=== PATIENT | female | born 1955 | race Caucasian/White ===

== ENCOUNTER 2017-09-17 08:58 | Day surgery (SDC) | payer BC ==
[2017-09-16 12:41] VITALS: BMI 28.3
[~2017-09-17 08:58] MED LIST: LACTATED RINGERS 1,000 ML IV SCH
[2017-09-17 09:50] VITALS: TEMP 98.4
[2017-09-17] MEDS ORDERED: LIDOCAINE 1% 20 ML VIAL (10MG/ML) FOR IV START INTRADERMA ONE (10:00)
[2017-09-17] MEDS ORDERED: LIDOCAINE 1% INJ 10MG/ML (20 ML MDV) ONE (10:38)
[2017-09-17] MEDS ORDERED: PROPOFOL 10 MG/ML 20 ML VIAL IV ONE (10:38)
--- NOTE | 2017-09-17 10:46 | P.GSHP ---
History of Present Illness H&P Date: 09/17/17 Chief Complaint: Screening colonoscopy This a 62-year-old female for flexure Olco. Patient presents today for screening colonoscopy. She denies a significant GI complaints. Past Medical History Past Medical History: Thyroid Disorder History of Any Multi-Drug Resistant Organisms: None Reported Past Surgical History: Tonsillectomy Additional Past Surgical History / Comment(s): Colonoscopy; Hemorroidectomy Past Anesthesia/Blood Transfusion Reactions: No Reported Reaction Smoking Status: Current some day smoker - Past Family History Mother Family Medical History: Cancer Additional Family Medical History / Comment(s): Breast CA Medications and Allergies Home Medications Medication Instructions Recorded Confirmed Type Aspirin [Adult Low Dose Aspirin EC] 81 mg PO DAILY 09/16/17 09/17/17 History Fish Oil/Dha/Epa [Fish Oil 1,200 1 each PO DAILY 09/16/17 09/17/17 History mg Fish Oil] Multivitamins, Thera [Multivitamin 1 tab PO DAILY 09/16/17 09/17/17 History (formulary)] Thyroid,Pork [Nature-Throid] 65 mg PO HS 09/16/17 09/17/17 History Allergies Allergy/AdvReac Type Severity Reaction Status Date / Time No Known Allergies Allergy Verified 09/17/17 09:50 Surgical - Exam Vital Signs Temp Pulse Resp BP Pulse Ox 98.4 F 73 16 150/79 98 09/17/17 09:44 09/17/17 09:44 09/17/17 09:44 09/17/17 09:44 09/17/17 09:44 - General well developed, no distress - Eyes PERRL - ENT normal pinna - Neck no masses - Respiratory normal expansion - Cardiovascular Rhythm: regular - Abdomen Abdomen: soft, non tender Assessment and Plan Assessment: We'll perform screening colonoscopy.
--- NOTE | 2017-09-17 11:10 | P.OP ---
Date of Procedure: 09/17/17 Preoperative Diagnosis: Screening colonoscopy Postoperative Diagnosis: Normal colonoscopy Procedure(s) Performed: Colonoscopy Anesthesia: MAC Surgeon: Gonzalez Holliday Pathology: none sent Condition: stable Disposition: PACU Description of Procedure: PROCEDURE: The patient was placed on the endoscopy table in the lateral position. Digital rectal examination was performed which revealed no abnormalities. Flexible colonoscope was then placed in the patient's anus and passed throughout the entire colon. The ileocecal valve was visualized. The cecum, ascending, transverse, descending and sigmoid colon were normal. The rectum was normal as well. There were no masses, polyps or diverticula noted in the entire colon. SUMMARY OF FINDINGS: Normal colonoscopy.
[2017-09-17 11:47] VITALS: BP 128/82; PULSE 62; RESP 16
== END 2017-09-17 11:55 | disposition home or self-care (01) ==
LOC: ORWHC2ENDO 08:58
PROVIDERS: ATTEND Surgery
DX: Z12.11 Encounter for screening for malignant neoplasm of colon (principal); E07.9 Disorder of thyroid, unspecified; F17.200 Nicotine dependence, unspecified, uncomplicated; Z79.82 Long term (current) use of aspirin; Z79.899 Other long term (current) drug therapy; Z80.3 Family history of malignant neoplasm of breast
CPT/HCPCS: 45378; J2001; J2704

== ENCOUNTER → 2017-10-06 | Outpatient (CLI) | payer BC ==
--- NOTE | 2017-10-07 08:34 | MM ---
Reason for exam: screening (asymptomatic). Last mammogram was performed 1 year and 2 months ago. History: Patient is postmenopausal. Family history of breast cancer in mother at age 55. Benign excisional biopsy of the left breast, 2014. Physical Findings: A clinical breast exam by your physician is recommended on an annual basis and results should be correlated with mammographic findings. MG Screening Mammo w CAD Bilateral CC and MLO view(s) were taken. Prior study comparison: July 31, 2016, mammogram, performed at [facility]. The breast tissue is heterogeneously dense. This may lower the sensitivity of mammography. Finding: There are typically benign dystrophic, round calcifications in both breasts. Previous mammotome biopsy in the left breast. There is a chronic nodularity bilaterally at axilla. There is no discrete abnormality. ASSESSMENT: Benign, BI-RAD 2 RECOMMENDATION: Routine screening mammogram of both breasts in 1 year.
== END | disposition home or self-care (01) ==
LOC: RADMAMWWP 08:02
PROVIDERS: ATTEND Family Medicine
DX: Z12.31 Encounter for screening mammogram for malignant neoplasm of breast (principal)
CPT/HCPCS: 77067

== ENCOUNTER → 2017-11-28 | Outpatient (CLI) | payer BC ==
--- NOTE | 2017-11-28 10:05 | MR ---
EXAMINATION TYPE: MR knee RT wo con DATE OF EXAM: 11/28/2017 COMPARISON: Outside x-ray dated 11/05/2017 HISTORY: Pain in right knee TECHNIQUE: Multiplanar, multisequence imaging of the right knee is performed without IV contrast. FINDINGS: MEDIAL MENISCUS: There is abnormal signal involving the posterior horn the medial meniscus suggestive of a linear tear. There is increased signal along the femoral articular cartilage of the medial comp artment compatible with grade 3 to localized chondromalacia. LATERAL MENISCUS: Anterior and posterior horns are intact without tear. CRUCIATE LIGAMENTS: The anterior and posterior cruciate ligaments are intact and unremarkable. COLLATERAL LIGAMENTS: The medial collateral ligament and lateral collateral ligament complex are inta ct and unremarkable. EXTENSOR MECHANISM: Visualized quadriceps and patellar tendons are intact. EFFUSION: No significant suprapatellar joint effusion. POPLITEAL CYST: No popliteal/walls cyst. TRICOMPARTMENT SPACES: There is marked marrow edema involving the patella. Correlate for bone contusi on. Thinning of the medial and lateral patellar retinaculum cartilage noted. Less than 1 cm fluid sig nal in the popliteal fossa may be related to a tiny popliteal fossa cyst. IMPRESSION: 1. 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 2. Diffuse abnormal signal involving the upper pole the patella suggestive of bone contusion or edema .
== END | disposition home or self-care (01) ==
LOC: RADMRIMAIN 09:12
PROVIDERS: ATTEND Orthopaedic Surgery
DX: R93.6 Abnormal findings on diagnostic imaging of limbs (principal); M25.561 Pain in right knee

== ENCOUNTER → 2018-02-16 | Outpatient (CLI) | payer BC ==
--- NOTE | 2018-02-16 17:47 | CT ---
EXAMINATION TYPE: CT chest w con DATE OF EXAM: 02/16/2018 COMPARISON: None HISTORY: 62-year-old female hemoptysis, Cold symptoms 4-5 days, coughed up blood once TECHNIQUE: Contiguous axial scanning of the chest after the administration of 100 mL of Isovue 300. Coronal/sagittal reconstructions performed. CT DLP: 227.6mGycm. Automatic exposure control utilized for a dose reduction. FINDINGS: Heart normal size without pericardial effusion. Aorta normal caliber with bovine configuration to the aortic arch. No thoracic lymphadenopathy by CT size criteria. Evaluation of the lungs shows minimal pleural-parenchymal scarring at the apices and some focal bronc hial wall thickening involving lateral segmental basilar right lower lobe bronchus on axial image 42. No consolidation or pleural effusion. Visualized upper abdomen shows incidental retroaortic left renal vein. Bones: Mild endplate spondylosis lower thoracic spine. IMPRESSION: 1. Some focal mural-based bronchial thickening involving a segmental basilar right lower lobe branch. Some focal inflammation/bronchitis is possible. Recommend 3-6 month follow-up to exclude an early en dobronchial lesion. 2. Otherwise, no acute pulmonary process.
== END | disposition home or self-care (01) ==
LOC: RADCTMAIN 15:32
PROVIDERS: ATTEND Family Medicine
DX: R91.8 Other nonspecific abnormal finding of lung field (principal)
CPT/HCPCS: 71260; Q9967

== ENCOUNTER → 2018-04-13 | Outpatient (CLI) | payer BC ==
--- NOTE | 2018-04-13 23:32 | CT ---
EXAMINATION TYPE: CT chest wo con DATE OF EXAM: 04/13/2018 COMPARISON: 02/16/2018 HISTORY: 62-year-old female Hemoptysis. TECHNIQUE: Contiguous axial scanning of the chest without IV contrast. Coronal and sagittal reconstru ctions performed. CT DLP: 248.1 mGycm Automated exposure control for dose reduction was used. FINDINGS: Size without pericardial effusion. Bovine configuration to the aortic arch weight mild ectasia of the mid to lower descending thoracic a abdoulaye at 2.6 cm. Scattered nonenlarged mediastinal lymph nodes. No thoracic lymphadenopathy by CT size criteria. No consolidation or pleural effusion. Strandy atelectasis at the left base. The previous endobronchia l/mural based thickening involving a segmental right lower lobe bronchus has resolved. Prominent ingested debris distending the stomach. Visualized upper abdomen otherwise shows no gross a bnormality. Bones: Mild degenerative disc disease lower thoracic spine. No osseous destructive process. IMPRESSION: STRANDY ATELECTASIS AT THE LEFT BASE. NO ACUTE PULMONARY PROCESS. THE PREVIOUS ENDOBRONCHIAL OPACITY INVOLVING A SEGMENTAL RIGHT LOWER LOBE BRONCHUS HAS RESOLVED SUGGE STING RETAINED MUCOID DEBRIS OR SECRETIONS.
== END | disposition home or self-care (01) ==
LOC: RADCTMAIN 17:43
PROVIDERS: ATTEND Internal Medicine Pulmonary Disease
DX: J98.11 Atelectasis (principal)
CPT/HCPCS: 71250

== ENCOUNTER → 2018-10-21 | Outpatient (CLI) | payer BC ==
[2018-10-21 14:47] LABS: Basophils # (A) 0.1 k/uL (0-0.2); Basophils % (A) 1 %; Eosinophils # (A) 0.4 k/uL (0-0.7); Eosinophils % (A) 4 %; HCT 44.8 % (34.0-46.0); HGB 14.9 gm/dL (11.4-16.0); Lymphocytes # (A) 2.8 k/uL (1.0-4.8); Lymphocytes % (A) 28 %; MCH 32.3 pg (25.0-35.0); MCHC 33.3 g/dL (31.0-37.0); Monocytes # (A) 0.6 k/uL (0-1.0); Monocytes % (A) 6 %; Neutrophils # (A) 6.1 k/uL (1.3-7.7); Neutrophils % (A) 60 %; Platelet Count 276 k/uL (150-450); RBC 4.62 m/uL (3.80-5.40); RDW 13.3 % (11.5-15.5); WBC 10.2 k/uL (3.8-10.6)
== END | disposition home or self-care (01) ==
LOC: LABPAT 12:52
PROVIDERS: ATTEND Obstetrics & Gynecology
DX: Z01.812 Encounter for preprocedural laboratory examination (principal)
CPT/HCPCS: 36415; 85025

== ENCOUNTER → 2018-10-26 | Outpatient (CLI) | payer BC | END | disposition home or self-care (01) | LOC: LABWHC1 07:26 | PROVIDERS: ATTEND Obstetrics & Gynecology | DX: Z01.818 Encounter for other preprocedural examination (principal) | CPT/HCPCS: 36415; 93005 ==

== ENCOUNTER 2018-10-27 06:12 | Day surgery (SDC) | payer BC ==
[2018-10-26 10:56] VITALS: BMI 27.4
--- NOTE | 2018-10-26 20:56 | P.HPOB ---
History of Present Illness H&P Date: 10/26/18 Chief Complaint: Thickened endometrium This is a 63-year-old female 2 para 2 who presents for dilation and curettage with hysteroscopy secondary to endometrial thickening. Her urinalysis at her PCPs office showed positive blood and pelvic ultrasound was performed as part of the workup. She denies having any vaginal bleeding. No kidney stone was visualized on ultrasound however her uterus showed an endometrial thickness of 7.4 mm. Uterine size was 9.1 x 4.1 x 5.3 cm. Neither ovary was well visualized. In light of the thickened endometrium, the decision is made to proceed with dilation and curettage with hysteroscopy for sampling of her endometrial lining. She has been using a hormone cream that is a mixture of estriol, estradiol, progesterone, and testosterone. Obstetrical history: . History of 2 vaginal deliveries. Gynecologic history: No history of sexual transmitted diseases. Social history: She is . She is retired. Review of Systems Constitutional: Denies chills, Denies fever Eyes: denies blurred vision, denies pain Ears, nose, mouth and throat: Denies headache, Denies sore throat Cardiovascular: Denies chest pain, Denies shortness of breath Respiratory: Denies cough Gastrointestinal: Denies abdominal pain, Denies diarrhea, Denies nausea, Denies vomiting Genitourinary: Reports hematuria, Denies abnormal vaginal bleeding, Denies dysuria Menstruation: Reports postmenopausal Musculoskeletal: Denies myalgias Integumentary: Denies pruritus, Denies rash Neurological: Denies numbness, Denies weakness Psychiatric: Denies anxiety, Denies depression Past Medical History Past Medical History: Osteoarthritis (OA), Thyroid Disorder History of Any Multi-Drug Resistant Organisms: None Reported Past Surgical History: Tonsillectomy Additional Past Surgical History / Comment(s): Colonoscopy; Hemorroidectomy Past Anesthesia/Blood Transfusion Reactions: No Reported Reaction Smoking Status: Current some day smoker - Past Family History Mother Family Medical History: Cancer Additional Family Medical History / Comment(s): Breast CA Medications and Allergies Home Medications Medication Instructions Recorded Confirmed Type Fish Oil/Dha/Epa [Fish Oil 1,200 1 each PO DAILY 09/16/17 10/26/18 History mg Fish Oil] Multivitamins, Thera [Multivitamin 1 tab PO DAILY 09/16/17 10/26/18 History (formulary)] Atorvastatin [Lipitor] 10 mg PO HS 10/26/18 10/26/18 History Glucosamine/Chondr Varma A Sod [Osteo 1 each PO DAILY 10/26/18 10/26/18 History Bi-Flex Caplet] Montelukast [Singulair] 10 mg PO HS PRN 10/26/18 10/26/18 History Thyroid,Pork [[place] Thyroid] 60 mg PO DAILY 10/26/18 10/26/18 History Timolol 0.5% Ophth Soln [Timoptic 1 drop BOTH EYES BID 10/26/18 10/26/18 History 0.5% Ophth Soln] Vitamin B Complex/Folic Acid 0.4 mg PO DAILY 10/26/18 10/26/18 History [B-Complex Tablet] Allergies Allergy/AdvReac Type Severity Reaction Status Date / Time No Known Allergies Allergy Verified 10/26/18 10:08 Exam Osteopathic Statement: *. No significant issues noted on an osteopathic structural exam other than those noted in the History and Physical/Consult. Intake and Output 10/26/18 10/26/18 10/26/18 06:59 14:59 22:59 Other: Weight 70.307 kg HEENT: Within normal limits Heart: Regular rate and rhythm Lungs: Clear to auscultation bilaterally Abdomen: Soft, nontender Pelvic exam: Uterus is small, nontender, anteverted, with no adnexal masses or tenderness noted. Extremities: Negative Homans Assessment and Plan (1) Thickened endometrium Status: Acute Code(s): R93.89 - ABNORMAL FINDINGS ON DX IMAGING OF OTH BODY STRUCTURES SNOMED Code(s): 630054958 Plan: Proceed with dilation and curettage with hysteroscopy. I have discussed the risks, benefits, and alternative therapies for the above- mentioned procedure and for both sedation/anesthesia as well as necessary blood products administration, if indicated, as they pertain to this patient. The patient has indicated her understanding and acceptance of the risks and procedures discussed.
[~2018-10-27 06:12] MED LIST changes: +DEXAMETHASONE SOD PHOSPHATE 10 MG/ML 1 ML VIAL IV ONE; +HYDROmorphone 0.5 MG/0.5 ML SYRINGE IVP PRN; +MIDAZOLAM (PF) 2 MG/2 ML VIAL IV PRN; +ONDANSETRON 4 MG/2 ML VIAL IVP ONE; +Pre Op ABX Message 1 EACH MISC MISCELLANE ONE; +SCOPOLAMINE 1.5MG/72HR PATCH TRANSDERM ONE
[2018-10-27 06:52] VITALS: RESP 16
[2018-10-27] MEDS ORDERED: LIDOCAINE 1% 20 ML VIAL (10MG/ML) FOR IV START INTRADERMA ONE (07:01)
[2018-10-27] MEDS ORDERED: PROPOFOL 10 MG/ML 20 ML VIAL IV ONE (07:24)
[2018-10-27] MEDS ORDERED: MIDAZOLAM 2 MG/2 ML VIAL ONE (07:24)
[2018-10-27] MEDS ORDERED: fentaNYL (PF) 50 MCG/ML 2 ML AMP ONE (07:24)
[2018-10-27] MEDS ORDERED: LIDOCAINE 1% INJ 10MG/ML (20 ML MDV) ONE (07:24)
[2018-10-27] MEDS ORDERED: KETOROLAC 30 MG/ML 1 ML VIAL ONE (07:24)
--- NOTE | 2018-10-27 07:51 | P.OP ---
Date of Procedure: 10/27/18 Preoperative Diagnosis: Endometrial thickening Postoperative Diagnosis: Endometrial polyp Procedure(s) Performed: Dilation and curettage with hysteroscopy Anesthesia: other (Mask general) Surgeon: Kendra Bullock Estimated Blood Loss (ml): 5 Pathology: other (Endometrial curettings) Condition: stable Disposition: same day Indications for Procedure: This is a 63-year-old female 2 para 2 who presents for dilation and curettage with hysteroscopy secondary to endometrial thickening. Her urinalysis at her PCPs office showed positive blood and pelvic ultrasound was performed as part of the workup. She denies having any vaginal bleeding. No kidney stone was visualized on ultrasound however her uterus showed an endometrial thickness of 7.4 mm. Uterine size was 9.1 x 4.1 x 5.3 cm. Neither ovary was well visualized. In light of the thickened endometrium, the decision is made to proceed with dilation and curettage with hysteroscopy for sampling of her endometrial lining. She has been using a hormone cream that is a mixture of estriol, estradiol, progesterone, and testosterone. Operative Findings: Uterus is mid to retroverted position and sounded to 9 cm. No adnexal masses are palpated. Upon hysteroscopy, a fairly large endometrial polyp is noted attached to the left side of the uterus. Both tubal ostia are visualized. Relatively atrophic endometrial background was noted. Minimal endometrial tissue was obtained. Description of Procedure: The patient is taken to the operating room where she is placed in the dorsal lithotomy position. She is prepped and draped in the normal sterile fashion. Examination is performed under anesthesia. The above noted findings are made. Next a catheter was inserted into the bladder and the bladder is drained. Catheter is removed. A weighted speculum was placed in the patient's vagina and a right angle retractor is used to visualize the cervix. The anterior lip of the cervix is grasped with a single-tooth tenaculum. The cervix is noted to be slightly stenotic and is slightly dilated with Guy dilators. Next the uterus is sounded to 9 cm. Cervix is gently dilated further and until a hysteroscope could be passed. Hysteroscopy is performed using normal saline. The above noted findings are made and pictures are taken. Hysteroscope was withdrawn and the cervix is gently dilated further. Next a polyp forcep was introduced and a large polypoid type tissue was obtained. Next a medium-size sharp curet was introduced and sharp curettage was performed until a gritty texture was noted. Minimal further tissue was noted. Specimen is sent to pathology. Single-tooth tenaculum is removed. No active bleeding is noted. All instruments are removed from the vagina. All sponge counts are correct. The patient is taken to recovery room in stable condition.
[2018-10-27 08:11] VITALS: TEMP 96.9
[2018-10-27 08:55] VITALS: BP 130/87; PULSE 66
== END 2018-10-27 09:20 | disposition home or self-care (01) ==
LOC: OR 06:12
PROVIDERS: ATTEND Obstetrics & Gynecology
DX: N84.0 Polyp of corpus uteri (principal); M19.90 Unspecified osteoarthritis, unspecified site; E07.9 Disorder of thyroid, unspecified; Z80.3 Family history of malignant neoplasm of breast; Z79.890 Hormone replacement therapy; Z79.899 Other long term (current) drug therapy; E78.5 Hyperlipidemia, unspecified; F17.200 Nicotine dependence, unspecified, uncomplicated; H40.9 Unspecified glaucoma
CPT/HCPCS: 88305; 58558; J2250; J1100; J2405; J2001; J3010; J1885; J2704

== ENCOUNTER → 2019-02-11 | Outpatient (CLI) | payer BC ==
--- NOTE | 2019-02-12 09:17 | MM ---
Reason for exam: screening (asymptomatic). Last mammogram was performed 1 year and 4 months ago. History: Patient is postmenopausal. Family history of breast cancer in mother at age 55. Benign excisional biopsy of the left breast, 2014. Physical Findings: A clinical breast exam by your physician is recommended on an annual basis and results should be correlated with mammographic findings. MG Screening Mammo w CAD Bilateral CC and MLO view(s) were taken. Prior study comparison: October 06, 2017, bilateral MG screening mammo w CAD. July 31, 2016, mammogram, performed at [facility]. The breast tissue is heterogeneously dense. This may lower the sensitivity of mammography. Stable benign calcifications. Previous mammotome biopsy in the left breast. There is no discrete abnormality. No significant changes when compared with prior studies. ASSESSMENT: Benign, BI-RAD 2 RECOMMENDATION: Routine screening mammogram of both breasts in 1 year.
== END | disposition home or self-care (01) ==
LOC: RADMAMWWP 09:55
PROVIDERS: ATTEND Family Medicine
DX: Z12.31 Encounter for screening mammogram for malignant neoplasm of breast (principal); Z80.3 Family history of malignant neoplasm of breast
CPT/HCPCS: 77067

== ENCOUNTER → 2019-07-06 | Outpatient (CLI) | payer MEDICARE ==
--- NOTE | 2019-07-06 12:37 | CT ---
EXAMINATION TYPE: CT urogram wo/w con DATE OF EXAM: 07/06/2019 COMPARISON: HISTORY: Microscopic hematuria. No complaints of pain CT DLP: 1310.4 mGycm CONTRAST: Performed and with IV Contrast, patient injected with 100 mL of Isovue 300. CT Urography was performed with unenhanced followed by enhanced images of the kidneys, ureters and ur inary bladder. Delayed images were obtained. 3d reconstruction was perfromed at a separate work sta tion. FINDINGS: KIDNEYS/BLADDER: No hydronephrosis. No nephrolithiasis. No disctinct renal mass. Urinary bladder g rossly unremarkable. LUNG BASES-: No visible nodule. No infiltrate. LIVER/GB: No calcified gallstones. No space occupying hepatic lesion. Biliary tree is of normal ca liber. PANCREAS: No inflammation. No distinct mass. SPLEEN: No splenic enlargement. No lesion seen. ADRENALS: No nodule. No thickening. BOWEL: Normal appendix. Normal bowel caliber. No inflammation. GENITAL ORGANS: Lobulated uterus compatible with leiomyomatous change and some which are calcified. LYMPH NODES: No greater than 1cm abdominal or pelvic lymph nodes are appreciated. AORTA: No significant abnormality. OSSEOUS STRUCTURES: No significant abnormality is seen. OTHER: No significant additional abnormality is seen. IMPRESSION: 1. No significant abnormality to account for the patient's symptoms of hematuria. Correlate clinicall y.
== END | disposition home or self-care (01) ==
LOC: RADCTMAIN 10:17
PROVIDERS: ATTEND Urology
DX: R31.9 Hematuria, unspecified (principal)
CPT/HCPCS: 82565; 84520; 74178; 36415; 74400; Q9967

== ENCOUNTER → 2020-02-14 | Outpatient (CLI) | payer MEDICARE ==
[2020-02-14 08:45] LABS: HCT 43.2 % (34.0-46.0); HGB 14.1 gm/dL (11.4-16.0); MCH 32.2 pg (25.0-35.0); MCHC 32.8 g/dL (31.0-37.0); MCV 98.2 fL (80.0-100.0); Platelet Count 240 k/uL (150-450); RDW 12.4 % (11.5-15.5); WBC 7.9 k/uL (3.8-10.6)
[2020-02-14 15:34] LABS: African American GFR (CKD) 68.5 (60.0-200.0); Albumin 4.1 g/dL (3.80-4.90); Albumin/Globulin Ratio 1.64 (1.60-3.17); Anion Gap 7.4 mmol/L (4.00-12.00); Calcium 9.3 mg/dL (8.7-10.3); Carbon Dioxide 23.6 mmol/L (21.6-31.8); Chol/HDL Ratio 2.5; Globulin 2.5 g/dL (1.6-3.3); LDL Cholesterol,Calculated 62.2 mg/dL (0.0-131.0); Non-African American GFR(CKD) 59.1 (60.0-200.0); Potassium 4.2 mmol/L (3.5-5.5); Total Bilirubin 0.8 mg/dL (0.2-1.2); Total Protein 6.6 g/dL (6.2-8.2); VLDL Calculation 15.8 mg/dL (5.00-40.00)
[2020-02-15 14:22] LABS: Estradiol 32.2 pg/mL
== END | disposition home or self-care (01) ==
LOC: LABWHC1 08:12
PROVIDERS: ATTEND Family Medicine
DX: E03.9 Hypothyroidism, unspecified (principal); E78.5 Hyperlipidemia, unspecified; Z78.0 Asymptomatic menopausal state
CPT/HCPCS: 36415; 80053; 80061; 82670; 84144; 84402; 84439; 84443; 84481; 85027

== ENCOUNTER → 2020-04-25 | Outpatient (CLI) | payer MEDICARE ==
--- NOTE | 2020-04-26 11:16 | MM ---
Reason for exam: screening (asymptomatic). Last mammogram was performed 1 year and 2 months ago. History: Patient is postmenopausal. Family history of breast cancer in mother at age 55. Benign excisional biopsy of the left breast, 2014. Took other hormone for 12 years. Physical Findings: A clinical breast exam by your physician is recommended on an annual basis and results should be correlated with mammographic findings. MG Screening Mammo w CAD Bilateral CC and MLO view(s) were taken. Prior study comparison: February 11, 2019, bilateral MG screening mammo w CAD. October 06, 2017, bilateral MG screening mammo w CAD. The breast tissue is heterogeneously dense. This may lower the sensitivity of mammography. Benign appearing bilateral calcifications. Previous mammotome biopsy in the left breast. ASSESSMENT: Benign, BI-RAD 2 RECOMMENDATION: Routine screening mammogram of both breasts in 1 year.
== END | disposition home or self-care (01) ==
LOC: RADMAMWWP 08:29
PROVIDERS: ATTEND Family Medicine
DX: Z12.31 Encounter for screening mammogram for malignant neoplasm of breast (principal); Z80.3 Family history of malignant neoplasm of breast
CPT/HCPCS: 77067

== ENCOUNTER → 2021-04-26 | Outpatient (CLI) | payer MEDICARE ==
--- NOTE | 2021-04-27 14:54 | MM ---
Reason for exam: screening (asymptomatic). Last mammogram was performed 1 year ago. History: Patient is postmenopausal. Family history of breast cancer in mother at age 55. Benign excisional biopsy of the left breast, 2015. Taking progesterone for 13 years. Took other hormone for 12 years. Physical Findings: A clinical breast exam by your physician is recommended on an annual basis and results should be correlated with mammographic findings. MG 3D Screening Mammo W/Cad Bilateral CC and MLO view(s) were taken. Prior study comparison: April 25, 2020, bilateral MG screening mammo w CAD. February 11, 2019, bilateral MG screening mammo w CAD. The breast tissue is heterogeneously dense. This may lower the sensitivity of mammography. Benign appearing calcifications bilaterally. Previous mammotome biopsy in the left breast. There are grouped calcifications in the left central breast. ASSESSMENT: Incomplete: need additional imaging evaluation, BI-RAD 0 RECOMMENDATION: Special view mammogram of the left breast. [facility] will attempt to contact patient to return for supplemental views.
== END | disposition home or self-care (01) ==
LOC: RADMAMWWP 09:19
PROVIDERS: ATTEND Family Medicine
DX: Z12.31 Encounter for screening mammogram for malignant neoplasm of breast (principal)
CPT/HCPCS: 77063; 77067

== ENCOUNTER → 2021-05-10 | Outpatient (CLI) | payer MEDICARE ==
--- NOTE | 2021-05-10 14:22 | MM ---
Reason for exam: additional evaluation requested from abnormal screening. Last mammogram was performed less than 1 month ago. History: Patient is postmenopausal. Family history of breast cancer in mother at age 53. Benign excisional biopsy of the left breast, 2014. Taking progesterone for 13 years. Took other hormone for 12 years. Physical Findings: Nurse did not find any significant physical abnormalities on exam. MG 3D Work Up W/Cad LT CC with magnification, LM with magnification, and LM view(s) were taken of the left breast. Prior study comparison: April 26, 2021, bilateral MG 3d screening mammo w/cad. April 25, 2020, bilateral MG screening mammo w CAD. Calcifications are likely within the wall of a cyst. 6 month follow up recommended. These results were verbally communicated with the patient and result sheet given to the patient on 05/10/21. ASSESSMENT: Probably benign, BI-RAD 3 RECOMMENDATION: Follow-up diagnostic mammogram of the left breast in 6 months.
== END | disposition home or self-care (01) ==
LOC: RADMAMWWP 10:11
PROVIDERS: ATTEND Family Medicine
DX: R92.8 Other abnormal and inconclusive findings on diagnostic imaging of breast (principal)
CPT/HCPCS: 77065; G0279; 77061

== ENCOUNTER → 2021-08-15 | Outpatient (CLI) | payer MEDICARE ==
--- NOTE | 2021-08-15 12:44 | CONS ---
CONSULTATION DATE OF SERVICE: 08/15/2021 This 66-year-old lady has been evaluated in [facility] for possible obstructive sleep apnea-hypopnea syndrome. HISTORY OF PRESENT ILLNESS/SLEEP-WAKE EVALUATION: Patient's usual sleep schedule is from 11 p.m. to 7 a.m. No problems with falling asleep, although she reads in the bedroom. She sleeps only on the side position; when she is on the back position she feels that her throat is closed and she has some breathing problems at that moment. She wakes up from sleep 3 times with nocturia. No history of hypnagogic hallucinations, sleep paralysis or cataplexy. During the day she usually does not take naps. [place] Sleepiness Scale is 9, which is borderline. She feels sleepy very often while reading or watching TV. PAST MEDICAL HISTORY: Positive for hypertension in the past, hyperlipidemia, allergies, hypothyroidism. PAST SURGICAL HISTORY: Tubal ligation 1981, hemorrhoid surgery 2003. MEDICATIONS: Estradiol, progesterone, atorvastatin 10 mg once a day, [place] Thyroid 90 mcg once a day, Singulair as needed, Zyrtec as needed. FAMILY HISTORY: Positive for heart problems, cancer, acid reflux. REVIEW OF SYSTEMS: Snoring, multiple awakenings from sleep. No headache. No chest pain. No shortness of breath. No fevers. No double vision. No recent chest pain. No abdominal pain. No bleeding episodes. No blood in the urine. No seizure episodes. PHYSICAL EXAMINATION: GENERAL: Pleasant lady without distress. VITAL SIGNS: BP was taken on the right arm several for measurements: 172/117, then 170/120, and then in 20 minutes 157/102. On the left arm in 20 minutes 161/103. RR 16, height 5 feet 3-1/2 inches, weight 161.6, body mass index 28, temperature 97.3, oxygen saturation at room air 97%. HEENT: PERRLA, EOMI, evaluation of oropharynx showed tongue protrudes midline. Extremely low position of soft palate; Mallampati IV. NECK: Supple, no JVD. Thyroid is not palpable. Neck measures 14-1/2 inches in circumference. LUNGS: Clear to percussion and to auscultation. Good air exchange. No wheezing or rhonchi. HEART: S1, S2 regular. No murmurs, gallops, or rubs. ABDOMEN: Soft and nontender. Bowel sounds are present. No organomegaly appreciated. EXTREMITIES: No clubbing or cyanosis. MODERATE NEEDS TEACHER: Awake, alert, and oriented X3. Cranial nerves 2 to 7 intact. There is no fasciculation or atrophy. noted. No focal deficits observed. IMPRESSION: 1. Snoring, multiple awakenings from sleep, extremely low position of soft palate, awakenings from sleep with choking and gasping for air when sleep on the back position; she tries always to sleep on her side. Obstructive sleep apnea-hypopnea syndrome. 2. Hypertension in the office. Patient indicated that she drinks one pot of caffeine in the morning. She also has a history of hypertension. 3. Hyperlipidemia. 4. Allergies. 5. Hypothyroidism. 6. Status post tubal ligation. 7. Status post hemorrhoid surgery in 2003. PLAN: 1. Monitoring blood pressure. 2. Low-sodium diet. 3. Stop caffeine. 4. Follow with primary care physician for monitoring blood pressure. 5. Home sleep apnea test to check patient's respiration during sleep. 6. CPAP/BiPAP titration if sleep study confirms obstructive sleep apnea-hypopnea syndrome. 7. Preferable position during sleep on the side. 8. No driving if patient feels any sleepiness. 9. I will see patient for follow up visit to explain results of testing and following plan. Thank you very much for referring this patient for consultation. Sincerely, Tio Costello MD, PhD, FAASM Diplomat of [place] [employer] Sleep Medicine Board of [place] [employer] [facility] [place] MMODL / IJN: [id number] /
== END | disposition home or self-care (01) ==
LOC: SLEEP 10:51
PROVIDERS: ATTEND Internal Medicine
DX: G47.33 Obstructive sleep apnea (adult) (pediatric) (principal); E78.5 Hyperlipidemia, unspecified; T78.40XA Allergy, unspecified, initial encounter; E03.9 Hypothyroidism, unspecified; Z98.890 Other specified postprocedural states
CPT/HCPCS: 99211

== ENCOUNTER → 2022-05-23 | Outpatient (CLI) | payer MEDICARE ==
--- NOTE | 2022-05-24 03:53 | EEG ---
ELECTROENCEPHALOGRAM REPORT PREAMBLE: This is a 67-year-old female who had a syncopal spell. CURRENT MEDICATIONS: 1. Hydrochlorothiazide. 2. Atorvastatin. 3. Bupropion. 4. Vitamin D. 5. Turmeric. 6. Cetirizine. 7. Montelukast. EEG FINDINGS: This is a 21-channel digital EEG recorded with video component, utilizing 10/20 international system with referential and bipolar montages. Background consists of well developed, well regulated moderate voltage activity in 10 hertz alpha. Background is posterior dominant and reactive to eye opening and closing. Photic driving response was not clearly seen. Drowsiness was seen with appearance of bilaterally symmetric theta frequency rhythm. Deeper stages of sleep were not seen. No focal or generalized epileptiform activity was seen. EKG channel showed no obvious arrhythmia. IMPRESSION: This is a normal awake and drowsy EEG. No focal, lateralized, or epileptiform activity was seen. MMODL / IJN: [id number] /
== END ==
LOC: NEUROMAIN 07:24
PROVIDERS: ATTEND Family Medicine
DX: R55 Syncope and collapse (principal); R32 Unspecified urinary incontinence; Z87.891 Personal history of nicotine dependence
CPT/HCPCS: 95819

== ENCOUNTER → 2022-05-27 | Outpatient (CLI) | payer MEDICARE ==
--- NOTE | 2022-05-28 09:59 | MM ---
Reason for Exam: Screening (asymptomatic). Last mammogram was performed 1 year(s) and 1 month(s) ago. Patient History: Menarche at age 13. First Full-Term at age 20. Postmenopausal. Currently using Progesterone, beginning at age 53 for 14 years. 2015, Benign Excisional Biopsy on the left side. Mother had breast cancer, age 53. Risk Values: Traci 5 year model risk: 3.5%. NCI Lifetime model risk: 11.1%. Prior Study Comparison: 04/26/2021 Bilateral Screening Mammogram, [facility]. 05/10/2021 Left Diagnostic Mammogram, [facility]. 11/12/2021 Left MG 3D diag mammo w/cad , [facility]. Tissue Density: The breast tissue is heterogeneously dense. This may lower the sensitivity of mammography. Findings: Analyzed By CAD. There is no suspicious group of microcalcifications or new suspicious mass in either breast. Benign round appearing calcifications within both breasts. No significant change from prior exams. Overall Assessment: Benign, BI-RAD 2 Management: Screening Mammogram of both breasts in 1 year. A clinical breast exam by your physician is recommended on an annual basis and results should be correlated with mammographic findings. Electronically signed and approved by: Murali Buchanan D.O.
== END | disposition home or self-care (01) ==
LOC: RADMAMWWP 08:23
PROVIDERS: ATTEND Family Medicine
DX: Z12.31 Encounter for screening mammogram for malignant neoplasm of breast (principal); Z80.3 Family history of malignant neoplasm of breast; Z78.0 Asymptomatic menopausal state
CPT/HCPCS: 77063; 77067

== ENCOUNTER → 2022-05-29 | Outpatient (CLI) | payer MEDICARE ==
--- NOTE | 2022-05-29 22:29 | MR ---
EXAMINATION TYPE: MR brain wo/w con DATE OF EXAM: 05/29/2022 COMPARISON: NONE HISTORY: Syncope. Fainting episode. TECHNIQUE: Multiplanar, multisequence images of the brain and brainstem is performed without and with IV contras t, utilizing 7 mL intravenous Gadavist . FINDINGS: Diffusion weighted images demonstrate no evidence of a recent infarct or other diffusion ab normality. The ventricular system and cisternal spaces are normal in size and appearance. The brain volume is age appropriate. There a 2-3 tiny scattered foci of T2 hyperintensity. Lesions are nonspeci fic in appearance and distribution. T2 Star weighted images show no suspicious intraparenchymal blood product. Midline structures demonstrate normal morphology. The craniocervical junction appears within normal limits. Post contrast images demonstrate no abnormal enhancement. The dural venous sinuses appear pa tent. The visualized sinuses are clear and the globes are intact. No suspicious fluid signal bilatera l mastoid air cells. IMPRESSION: Minimal nonspecific white matter changes favor product of chronic small vessel ischemic c hange in patient of this age. No abnormal enhancement seen.
== END | disposition home or self-care (01) ==
LOC: RADMRIMAIN 18:30
PROVIDERS: ATTEND Family Medicine
DX: R90.82 White matter disease, unspecified (principal); I67.82 Cerebral ischemia; R55 Syncope and collapse; R32 Unspecified urinary incontinence
CPT/HCPCS: 70553; A9585

== ENCOUNTER 2022-11-15 05:33 | Emergency (ER) | payer MEDICARE ==
[2022-11-15] MEDS ORDERED: SODIUM CHLORIDE 0.9% 1,000 ML IV STA (06:07)
[2022-11-15] MEDS ORDERED: KETOROLAC 15 MG/ML 1 ML VIAL IVP STA (06:07)
[2022-11-15] MEDS ORDERED: FAMOTIDINE 20 MG/2 ML VIAL IV STA (06:07)
--- NOTE | 2022-11-15 06:15 | ED ---
Abdominal Pain HPI - General Chief Complaint: Abdominal Pain Stated Complaint: Abd pain, Weakness Time Seen by Provider: 11/15/22 05:57 Source: patient, RN notes reviewed Mode of arrival: ambulatory Limitations: no limitations - History of Present Illness Initial Comments: This is a 67-year-old female who presents to the emergency department for abdominal pain, nausea, and vomiting. States that this started around 2:30 AM. Describes this as a sharp pain in the epigastric region. She is unable to localize this to one side. She has associated nausea and vomiting. Denies any changes in bowel/bladder habits. Also denies any history of similar symptoms in the past. She denies any chest pain or shortness of breath. Denies any fevers, chills, sore throat, cough, dyspnea, chest pain, palpitations, diarrhea, back pain, or headaches. MD Complaint: abdominal pain Location: epigastric Associated Symptoms: nausea, vomiting - Related Data Home Medications Medication Instructions Recorded Confirmed Fish Oil/Dha/Epa [Fish Oil 1,200 1 each PO DAILY 09/16/17 10/27/18 mg Fish Oil] Multivitamins, Thera [Multivitamin 1 tab PO DAILY 09/16/17 10/27/18 (formulary)] Atorvastatin [Lipitor] 10 mg PO HS 10/26/18 10/27/18 Glucosamine/Chondr Varma A Sod [Osteo 1 each PO DAILY 10/26/18 10/27/18 Bi-Flex Caplet] Montelukast [Singulair] 10 mg PO HS PRN 10/26/18 10/27/18 Thyroid,Pork [[place] Thyroid] 60 mg PO DAILY 10/26/18 10/27/18 Timolol 0.5% Ophth Soln [Timoptic 1 drop BOTH EYES BID 10/26/18 10/27/18 0.5% Ophth Soln] Vitamin B Complex/Folic Acid 0.4 mg PO DAILY 10/26/18 10/27/18 [B-Complex Tablet] Previous Rx's Medication Instructions Recorded Acetaminophen-Codeine 300-30mg 1 tab PO Q6H PRN 3 Days #12 tablet 11/15/22 [Tylenol w/codeine #3] Ketorolac [Toradol] 10 mg PO Q6HR PRN #12 tab 11/15/22 Ondansetron Odt [Zofran Odt] 4 mg PO Q8HR PRN #15 tab 11/15/22 Allergies Allergy/AdvReac Type Severity Reaction Status Date / Time No Known Allergies Allergy Verified 10/27/18 06:52 Review of Systems ROS Statement: Those systems with pertinent positive or pertinent negative responses have been documented in the HPI. ROS Other: All systems not noted in ROS Statement are negative. Past Medical History Past Medical History: Thyroid Disorder History of Any Multi-Drug Resistant Organisms: None Reported Past Surgical History: Tonsillectomy Additional Past Surgical History / Comment(s): Colonoscopy; Hemorroidectomy Past Anesthesia/Blood Transfusion Reactions: No Reported Reaction Past Psychological History: No Psychological Hx Reported Smoking Status: Never smoker Past Alcohol Use History: Occasional Past Drug Use History: None Reported - Past Family History Mother Family Medical History: Cancer Additional Family Medical History / Comment(s): Breast CA General Exam Limitations: no limitations General appearance: alert, in distress Head exam: Present: atraumatic, normocephalic, normal inspection Respiratory exam: Present: normal lung sounds bilaterally. Absent: respiratory distress, wheezes, rales, rhonchi, stridor Cardiovascular Exam: Present: regular rate, normal rhythm, normal heart sounds. Absent: systolic murmur, diastolic murmur, rubs, gallop, clicks GI/Abdominal exam: Present: soft, tenderness (epigastric), normal bowel sounds. Absent: distended Neurological exam: Present: alert, oriented X3, CN II-XII intact Psychiatric exam: Present: normal affect, normal mood Skin exam: Present: warm, dry, intact, normal color. Absent: rash Course Vital Signs 11/15/22 11/15/22 11/15/22 05:36 06:29 08:00 Temperature 98.9 F 98.1 F Pulse Rate 59 L 61 81 Respiratory 18 15 16 Rate Blood Pressure 115/80 163/92 155/90 O2 Sat by Pulse 98 98 100 Oximetry Medical Decision Making - Medical Decision Making This is a 67-year-old female who presents to the emergency department for abdominal pain. Was pt. sent in by a medical professional or institution? @ -No Did you speak to anyone other than the patient for history? @ -No Did you review nursing and triage notes? @ -Yes, and I agree, it is accurate with regards to the patient's symptoms. Were old charts reviewed? @ -No Differential Diagnosis? @ -Differential Abdominal Pain Women: Appendicitis, Cholecystitis, diverticulosis, ischemic bowel, pancreatitis, hepatitis, UTI, gastroenteritis, AAA, incarcerated hernia, bowel obstruction, constipation, inflammatory bowel, hepatitis, peptic ulcer disease, splenic infarction, perforated viscus, vulvitis, ovarian torsion, PID, kidney stone, placenta abruption, this is not meant to be an all-inclusive list EKG interpreted by me (3pts min.)? @ -EKG interpreted by me demonstrating the following: Sinus rhythm. Ventricular rate 77 bpm, WA interval 208 ms, QRS duration 93 ms, QTC 424 ms. X-rays interpreted by me (1pt min.)? @ -Chest x-ray obtained, my interpretation identifies no localized consolidations or infiltrates. CT interpreted by me (1pt min.)? @ -Not obtained U/S interpreted by me (1pt. min.)? @ -Gallbladder ultrasound obtained. My interpretation identifies a large gallstone. There is no evidence of gallbladder wall thickening. What testing was considered but not performed? (CT, X-rays, U/S, labs)? Why? @ -None What meds were considered but not given? Why? @ -None Did you discuss the management of the patient with other professionals? @ -No Did you reconcile home meds? @ -No Was smoking cessation discussed for >3mins.? @ -No Was critical care preformed (if so, how long)? @ -No Were there social determinants of health that impacted care today? How? (Homelessness, low income, unemployed, alcoholism, drug addiction, transpor tation, low edu. Level, literacy, decrease access to med. care, assisted, rehab)? @ -No Was there de-escalation of care discussed even if they declined? (Discuss DNR or withdrawal of care, Hospice)? @ -No What co-morbidities impacted this encounter? (DM, HTN, Smoking, COPD, CAD, Cancer, CVA, Hep., AIDS, mental health diagnosis, sleep apnea, morbid obesity)? @ -None Was patient admitted / discharged? @ -Discharged. Lab work obtained revealing leukocytosis. Gallbladder ultrasound reveals a single large gallstone without secondary evidence for acute cholecystitis. Chest x-ray obtained as well revealing no acute findings. Pain was controlled with Toradol and Pepcid. She declined the need for nausea medicine at that time. Symptoms likely related to biliary colic secondary to the cholelithiasis. This was reviewed with the patient, and she will likely need her gallbladder removed, which can be scheduled on an outpatient basis. Patient is in agreement with this plan. Prescription for Toradol, Zofran, and Tylenol #3 provided with dosing instructions reviewed. Patient is instructed to take the Toradol with Tylenol if needed and avoid any other [id number] anti-inflammatories such as ibuprofen with the Toradol. Also advised that the Tylenol #3 is sedating and she should take it sparingly when her pain is the most severe and avoid driving or operating machinery when taking this. She is instructed to follow a low-fat and bland diet to reduce the risk of future episodes. Information for general surgery follow-up provided as well, she is instructed to contact them for a follow-up appointment. Undiagnosed new problem with uncertain prognosis? @ -None Drug Therapy requiring intensive monitoring for toxicity (Heparin, Nitro, Insulin, Cardizem)? @ -None Were any procedures done? @ -None Diagnosis/symptom? @ -Cholelithiasis, biliary colic Acute, or Chronic, or Acute on Chronic? @ -Acute Uncomplicated (without systemic symptoms) or Complicated (systemic symptoms)? @ -Uncomplicated Side effects of treatment? @ -None Exacerbation, Progression, or Severe Exacerbation] @ -Not applicable Poses a threat to life or bodily function? @ -No Return precautions reviewed in depth, the patient is instructed to return to the emergency department with any new, worsening, or concerning symptoms. Patient verbalized understanding. This case was discussed in detail with the attending ED physician, Dr. Champagne. Presentation, findings, and treatment plan discussed in detail as well. - Lab Data Result diagrams: 11/15/22 06:29 11/15/22 06:29 Lab Results 11/15/22 11/15/22 11/15/22 Range/Units 06:29 06:29 06:29 WBC 13.8 H (3.8-10.6) k/uL RBC 4.53 (3.80-5.40) m/uL Hgb 14.9 (11.4-16.0) gm/dL Hct 44.1 (34.0-46.0) % MCV 97.4 (80.0-100.0) fL MCH 32.8 (25.0-35.0) pg MCHC 33.7 (31.0-37.0) g/dL RDW 12.1 (11.5-15.5) % Plt Count 241 (150-450) k/uL MPV 6.8 Neutrophils % 85 % Lymphocytes % 9 % Monocytes % 3 % Eosinophils % 1 % Basophils % 0 % Neutrophils # 11.8 H (1.3-7.7) k/uL Lymphocytes # 1.3 (1.0-4.8) k/uL Monocytes # 0.5 (0-1.0) k/uL Eosinophils # 0.2 (0-0.7) k/uL Basophils # 0.0 (0-0.2) k/uL Sodium 136 L (137-145) mmol/L Potassium 3.4 L (3.5-5.1) mmol/L Chloride 102 (98-107) mmol/L Carbon Dioxide 25 (22-30) mmol/L Anion Gap 9 mmol/L BUN 17 (7-17) mg/dL Creatinine 0.94 (0.52-1.04) mg/dL Est GFR (CKD-EPI)AfAm 72 (>60 ml/min/1.73 sqM) Est GFR (CKD-EPI)NonAf 63 (>60 ml/min/1.73 sqM) Glucose 153 H (74-99) mg/dL Plasma Lactic Acid Juaquin 1.0 (0.7-2.0) mmol/L Calcium 9.3 (8.4-10.2) mg/dL Total Bilirubin 1.1 (0.2-1.3) mg/dL AST 28 (14-36) U/L ALT 31 (4-34) U/L Alkaline Phosphatase 93 (38-126) U/L Troponin I (0.000-0.034) ng/mL Total Protein 7.4 (6.3-8.2) g/dL Albumin 4.4 (3.5-5.0) g/dL Amylase 124 H (30-110) U/L Lipase 253 (23-300) U/L 11/15/22 Range/Units 06:29 WBC (3.8-10.6) k/uL RBC (3.80-5.40) m/uL Hgb (11.4-16.0) gm/dL Hct (34.0-46.0) % MCV (80.0-100.0) fL MCH (25.0-35.0) pg MCHC (31.0-37.0) g/dL RDW (11.5-15.5) % Plt Count (150-450) k/uL MPV Neutrophils % % Lymphocytes % % Monocytes % % Eosinophils % % Basophils % % Neutrophils # (1.3-7.7) k/uL Lymphocytes # (1.0-4.8) k/uL Monocytes # (0-1.0) k/uL Eosinophils # (0-0.7) k/uL Basophils # (0-0.2) k/uL Sodium (137-145) mmol/L Potassium (3.5-5.1) mmol/L Chloride (98-107) mmol/L Carbon Dioxide (22-30) mmol/L Anion Gap mmol/L BUN (7-17) mg/dL Creatinine (0.52-1.04) mg/dL Est GFR (CKD-EPI)AfAm (>60 ml/min/1.73 sqM) Est GFR (CKD-EPI)NonAf (>60 ml/min/1.73 sqM) Glucose (74-99) mg/dL Plasma Lactic Acid Juaquin (0.7-2.0) mmol/L Calcium (8.4-10.2) mg/dL Total Bilirubin (0.2-1.3) mg/dL AST (14-36) U/L ALT (4-34) U/L Alkaline Phosphatase (38-126) U/L Troponin I <0.012 (0.000-0.034) ng/mL Total Protein (6.3-8.2) g/dL Albumin (3.5-5.0) g/dL Amylase (30-110) U/L Lipase (23-300) U/L - Radiology Data Radiology results: report reviewed, image reviewed Disposition Clinical Impression: Cholelithiasis, Biliary colic Disposition: HOME SELF-CARE Instructions (If sedation given, give patient instructions): Biliary Colic (ED), Gallstones (ED), Low Fat Diet (ED) Additional Instructions: Return to the emergency department with any new, worsening, or concerning symptoms. You can take the Toradol if the pain returns. This is what you rece ived in the emergency department. If you choose to take this, do not take it with afwb-iug-zzqixag anti-inflammatories such as ibuprofen. Take one or the other. You may take it with Tylenol. The Zofran can be used up to every 8 hours as needed for nausea and vomiting. Take the Tylenol #3 sparingly when your pain is the most severe. Be aware that it may be sedating and you should avoid driving or operating machinery when taking this. Contact general surgery as soon as you are discharged from here for a follow-up appointment regarding the gallstones. Try to follow a bland low-fat diet for the meantime to reduce the risk of future episodes. Follow up with your primary care provider in 1-2 days. Prescriptions: Ketorolac [Toradol] 10 mg PO Q6HR PRN #12 tab PRN Reason: Pain Acetaminophen-Codeine 300-30mg [Tylenol w/codeine #3] 1 tab PO Q6H PRN 3 Days #12 tablet PRN Reason: Pain Ondansetron Odt [Zofran Odt] 4 mg PO Q8HR PRN #15 tab PRN Reason: Nausea And Vomiting Is patient prescribed a controlled substance at d/c from ED?: Yes When asked, does pt state using other controlled substances?: No If prescribed controlled substance>3 days was MAPS reviewed?: Prescribed <3 Days Referrals: Mikayla Orellana DO [Primary Care Provider] - 1-2 days Gonzalez Holliday MD [STAFF PHYSICIAN] - 1-2 days
[2022-11-15 06:37] LABS: Basophils % (A) 0 %; Eosinophils # (A) 0.2 k/uL (0-0.7); Eosinophils % (A) 1 %; HCT 44.1 % (34.0-46.0); HGB 14.9 gm/dL (11.4-16.0); Lymphocytes # (A) 1.3 k/uL (1.0-4.8); Lymphocytes % (A) 9 %; MCH 32.8 pg (25.0-35.0); MCHC 33.7 g/dL (31.0-37.0); MCV 97.4 fL (80.0-100.0); Mean Platelet Volume 6.8; Monocytes # (A) 0.5 k/uL (0-1.0); Monocytes % (A) 3 %; Neutrophils # (A) 11.8 k/uL (1.3-7.7); Neutrophils % (A) 85 %; Platelet Count 241 k/uL (150-450); RBC 4.53 m/uL (3.80-5.40); RDW 12.1 % (11.5-15.5); WBC 13.8 k/uL (3.8-10.6)
[2022-11-15 06:49] LABS: Albumin 4.4 g/dL (3.5-5.0); Calcium 9.3 mg/dL (8.4-10.2); Potassium 3.4 mmol/L (3.5-5.1); Total Bilirubin 1.1 mg/dL (0.2-1.3); Total Protein 7.4 g/dL (6.3-8.2)
--- NOTE | 2022-11-15 07:04 | XR ---
EXAMINATION TYPE: XR chest 2V DATE OF EXAM: 11/15/2022 COMPARISON: CT chest April 13, 2018 HISTORY: Epigastric pain. TECHNIQUE: Frontal and lateral views of the chest are obtained. FINDINGS: There is patchy left basilar opacity. Right lung is clear. No pleural effusion or pneumoth orax seen bilaterally. The cardiac silhouette size is within normal limits. Underlying scoliotic curv ature is redemonstrated. IMPRESSION: Patchy left basilar opacity favoring atelectasis over developing acute infiltrate.
--- NOTE | 2022-11-15 07:49 | US ---
EXAMINATION TYPE: US gallbladder DATE OF EXAM: 11/15/2022 COMPARISON: NONE CLINICAL INDICATION: Female, 67 years old with history of Epigastric pain; Epigastric pain, nausea TECHNIQUE: Multiple sonographic images of the right upper quadrant are obtained. FINDINGS: EXAM MEASUREMENTS: Liver Length: 15.2 cm Gallbladder Wall: 0.3 cm CBD: 0.5 cm Right Kidney: 9.9 x 3.6 x 4.6 cm Pancreas: Tail obscured by overlying bowel gas Liver: wnl Gallbladder: stone = 2.4cm Evidence for sonographic Pace's sign: no CBD: wnl Right Kidney: no evidence of hydronephrosis IMPRESSION: Single large gallstone without ultrasound evidence for acute cholecystitis
[2022-11-15 08:15] VITALS: BP 155/90; PULSE 81; RESP 16; TEMP 98.1
== END 2022-11-15 08:39 | disposition home or self-care (01) ==
LOC: EC 05:33
DX: K80.20 Calculus of gallbladder without cholecystitis without obstruction (principal); K80.70 Calculus of gallbladder and bile duct without cholecystitis without obstruction
CPT/HCPCS: 36415; 93005; 80053; 82150; 83605; 83690; 84484; 85025; 71046; 76705; 99285; 96374; 96375; 96361; J1885

== ENCOUNTER → 2022-12-03 | Outpatient (CLI) | payer MEDICARE ==
--- NOTE | 2022-12-03 13:05 | CT ---
EXAMINATION TYPE: CT chest wo con DATE OF EXAM: 12/03/2022 COMPARISON: 04/13/2018 and radiograph 11/15/2022 HISTORY: 67-year-old female R9 1.1, Abn CXR TECHNIQUE: Contiguous axial scanning of the chest without IV contrast. Coronal and sagittal reconstru ctions performed. CT DLP: 209.9 mGycm Automated exposure control for dose reduction was used. FINDINGS: Heart normal size without pericardial effusion. Borderline ectatic ascending aorta 3.5 cm. Bovine configuration to the aortic arch. Ectatic descendi ng thoracic aorta 2.7 cm. No thoracic lymphadenopathy by CT size criteria. 3 mm posterior right apical pulmonary nodule, axial image 9 is unchanged. Minimal strandy posterior basilar atelectasis. No consolidation or pleural effusion. Visualized upper abdomen shows no gross abnormality. Bones: Mild degenerative disc disease lower thoracic spine. IMPRESSION: NO ACUTE PULMONARY PROCESS. SOME MINIMAL STRANDY BASILAR ATELECTASIS. A TINY, BENIGN 3 MM RIGHT-SIDED PULMONARY NODULE REMAINS UNCHANGED FROM 2018
== END | disposition home or self-care (01) ==
LOC: RADCTMAIN 09:51
PROVIDERS: ATTEND Family Medicine
DX: J98.11 Atelectasis (principal); R91.1 Solitary pulmonary nodule
CPT/HCPCS: 71250

== ENCOUNTER 2023-02-03 10:35 | Day surgery (SDC) | payer MEDICARE ==
[~2023-02-03 10:35] MED LIST changes: +ACETAMINOPHEN TAB 500 MG TAB PO PRN; -DEXAMETHASONE SOD PHOSPHATE 10 MG/ML 1 ML VIAL IV ONE; +DEXAMETHASONE SOD PHOSPHATE 4 MG/ML 1 ML VIAL IV ONE; +HEPARIN SODIUM,PORCINE/PF 5,000 UNIT/0.5 ML SYRINGE SQ PRN; -HYDROmorphone 0.5 MG/0.5 ML SYRINGE IVP PRN; +LIDOCAINE 1% (10MG/ML) FOR IV START INTRADERMA PRN; -MIDAZOLAM (PF) 2 MG/2 ML VIAL IV PRN; -Pre Op ABX Message 1 EACH MISC MISCELLANE ONE; -SCOPOLAMINE 1.5MG/72HR PATCH TRANSDERM ONE; +droPERidol 5 MG/2 ML VIAL IVP PRN
[2023-02-03 11:22] LABS: Basophils # (A) 0.1 k/uL (0-0.2); Basophils % (A) 1 %; Eosinophils # (A) 0.3 k/uL (0-0.7); Eosinophils % (A) 5 %; HCT 43.9 % (34.0-46.0); HGB 15.3 gm/dL (11.4-16.0); Lymphocytes # (A) 1.9 k/uL (1.0-4.8); Lymphocytes % (A) 28 %; MCH 33.4 pg (25.0-35.0); MCHC 34.9 g/dL (31.0-37.0); MCV 95.6 fL (80.0-100.0); Mean Platelet Volume 6.9; Monocytes # (A) 0.4 k/uL (0-1.0); Monocytes % (A) 7 %; Neutrophils # (A) 3.9 k/uL (1.3-7.7); Neutrophils % (A) 58 %; Platelet Count 235 k/uL (150-450); RBC 4.59 m/uL (3.80-5.40); RDW 11.9 % (11.5-15.5); WBC 6.7 k/uL (3.8-10.6)
[2023-02-03 11:36] LABS: ALT 40 U/L (4-34); AST 67 U/L (14-36); African American GFR (CKD) 75 (>60 ml/min/1.73 sqM); Albumin 4.7 g/dL (3.5-5.0); Alkaline Phosphatase 90 U/L (38-126); Anion Gap 6 mmol/L; Blood Urea Nitrogen 19 mg/dL (7-17); Calcium 9.3 mg/dL (8.4-10.2); Carbon Dioxide 23 mmol/L (22-30); Chloride 106 mmol/L (98-107); Glucose 105 mg/dL (74-99); Non-African American GFR(CKD) 65 (>60 ml/min/1.73 sqM); Sodium 135 mmol/L (137-145); Total Bilirubin 1.8 mg/dL (0.2-1.3); Total Protein 8.3 g/dL (6.3-8.2)
[2023-02-03 11:44] LABS: Potassium 5.7 mmol/L (3.5-5.1)
--- NOTE | 2023-02-03 12:08 | P.GSHP ---
History of Present Illness H&P Date: 02/03/23 Chief Complaint: Right upper quadrant pain This a 67-year-old female who was evaluated emergency room for right quadrant pain. Patient's found have a large solitary gallstone. Patient resents today for laparoscopic cholecystectomy. Past Medical History Past Medical History: Hyperlipidemia, Hypertension, Thyroid Disorder History of Any Multi-Drug Resistant Organisms: None Reported Past Surgical History: Tubal Ligation Additional Past Surgical History / Comment(s): Colonoscopy; Hemorroidectomy Past Anesthesia/Blood Transfusion Reactions: No Reported Reaction Smoking Status: Current every day smoker - Past Family History Mother Family Medical History: Cancer Additional Family Medical History / Comment(s): Breast CA Medications and Allergies Home Medications Medication Instructions Recorded Confirmed Type Fish Oil/Dha/Epa [Fish Oil 1,200 1 each PO DAILY 09/16/17 01/24/23 History mg Fish Oil] Multivitamins, Thera [Multivitamin 1 tab PO DAILY 09/16/17 01/24/23 History (formulary)] Atorvastatin [Lipitor] 20 mg PO HS 10/26/18 01/24/23 History Montelukast [Singulair] 10 mg PO HS PRN 10/26/18 01/24/23 History Thyroid,Pork [[place] Thyroid] 90 mg PO DAILY 10/26/18 01/24/23 History Timolol 0.5% Ophth Soln [Timoptic 1 drop BOTH EYES BID 10/26/18 01/24/23 History 0.5% Ophth Soln] Vitamin B Complex/Folic Acid 0.4 mg PO DAILY 10/26/18 01/24/23 History [B-Complex Tablet] Ondansetron Odt [Zofran Odt] 4 mg PO Q8HR PRN #15 tab 11/15/22 01/24/23 Rx Tumeric/Karli(Unk) 1 tab PO DAILY 01/24/23 01/24/23 History buPROPion HCL [buPROPion HCL SR] 150 mg PO DAILY 01/24/23 01/24/23 History hydroCHLOROthiazide 12.5 mg PO DAILY 01/24/23 01/24/23 History Cholecalciferol [Vitamin D3 (25 2,000 units PO DAILY 02/03/23 02/03/23 History Mcg = 1000 Iu)] Magnesium 250 mg PO DAILY 02/03/23 02/03/23 History Allergies Allergy/AdvReac Type Severity Reaction Status Date / Time No Known Allergies Allergy Verified 02/03/23 10:45 Surgical - Exam Vital Signs Temp Pulse Resp BP Pulse Ox 96.3 F L 74 16 149/79 97 02/03/23 10:56 02/03/23 10:56 02/03/23 10:56 02/03/23 10:56 02/03/23 10:56 - General well developed, well nourished, no distress - Eyes PERRL - ENT normal pinna - Neck no masses - Respiratory normal expansion - Cardiovascular Rhythm: regular - Abdomen Abdomen: soft, non tender Results - Labs 02/03/23 11:07 02/03/23 11:07 Abnormal Lab Results - Last 24 Hours (Table) 02/03/23 Range/Units 11:07 Sodium 135 L (137-145) mmol/L Potassium 5.7 H (3.5-5.1) mmol/L BUN 19 H (7-17) mg/dL Glucose 105 H (74-99) mg/dL Total Bilirubin 1.8 H (0.2-1.3) mg/dL AST 67 H (14-36) U/L ALT 40 H (4-34) U/L Total Protein 8.3 H (6.3-8.2) g/dL Diabetes panel 02/03/23 Range/Units 11:07 Sodium 135 L (137-145) mmol/L Potassium 5.7 H (3.5-5.1) mmol/L Chloride 106 (98-107) mmol/L Carbon Dioxide 23 (22-30) mmol/L BUN 19 H (7-17) mg/dL Creatinine 0.91 (0.52-1.04) mg/dL Glucose 105 H (74-99) mg/dL Calcium 9.3 (8.4-10.2) mg/dL AST 67 H (14-36) U/L ALT 40 H (4-34) U/L Alkaline Phosphatase 90 (38-126) U/L Total Protein 8.3 H (6.3-8.2) g/dL Albumin 4.7 (3.5-5.0) g/dL Calcium panel 02/03/23 Range/Units 11:07 Calcium 9.3 (8.4-10.2) mg/dL Albumin 4.7 (3.5-5.0) g/dL Pituitary panel 02/03/23 Range/Units 11:07 Sodium 135 L (137-145) mmol/L Potassium 5.7 H (3.5-5.1) mmol/L Chloride 106 (98-107) mmol/L Carbon Dioxide 23 (22-30) mmol/L BUN 19 H (7-17) mg/dL Creatinine 0.91 (0.52-1.04) mg/dL Glucose 105 H (74-99) mg/dL Calcium 9.3 (8.4-10.2) mg/dL Adrenal panel 02/03/23 Range/Units 11:07 Sodium 135 L (137-145) mmol/L Potassium 5.7 H (3.5-5.1) mmol/L Chloride 106 (98-107) mmol/L Carbon Dioxide 23 (22-30) mmol/L BUN 19 H (7-17) mg/dL Creatinine 0.91 (0.52-1.04) mg/dL Glucose 105 H (74-99) mg/dL Calcium 9.3 (8.4-10.2) mg/dL Total Bilirubin 1.8 H (0.2-1.3) mg/dL AST 67 H (14-36) U/L ALT 40 H (4-34) U/L Alkaline Phosphatase 90 (38-126) U/L Total Protein 8.3 H (6.3-8.2) g/dL Albumin 4.7 (3.5-5.0) g/dL Assessment and Plan Assessment: History of significant tobacco device. We'll perform laparoscopic cholecystectomy.
[2023-02-03] MEDS ORDERED: HYDROmorphone (PF) 1 MG/ML ONE (12:21)
[2023-02-03] MEDS ORDERED: GLYCOPYRROLATE 0.2 MG/ML 2 ML VIAL ONE (12:21)
[2023-02-03] MEDS ORDERED: fentaNYL (PF) 50 MCG/ML 2 ML AMP ONE (12:21)
[2023-02-03] MEDS ORDERED: PROPOFOL 10 MG/ML 20 ML VIAL IV ONE (12:21)
[2023-02-03] MEDS ORDERED: SUCCINYLCHOLINE CHLORIDE 200 MG/10 ML VIAL IV ONE (12:21)
[2023-02-03] MEDS ORDERED: NEOSTIGMINE 1 MG/ML 10 ML VIAL ONE (12:21)
[2023-02-03] MEDS ORDERED: MIDAZOLAM 2 MG/2 ML VIAL ONE (12:21)
[2023-02-03] MEDS ORDERED: LIDOCAINE 2% INJ 20 MG/ML (2 ML VIAL) ONE (12:21)
[2023-02-03] MEDS ORDERED: ROCURONIUM 10 MG/ML (5 ML VIAL) IV ONE (12:21)
[2023-02-03] MEDS ORDERED: BUPIVACAINE (PF) 0.25% 10 ML VIAL SQ ONE (12:50)
--- NOTE | 2023-02-03 12:59 | P.OP ---
Date of Procedure: 02/03/23 Preoperative Diagnosis: Cholecystitis Cholelithiasis Postoperative Diagnosis: Cholecystitis Cholelithiasis Procedure(s) Performed: Laparoscopic cholecystectomy Anesthesia: BLADIMIR Surgeon: Gonzalez Holliday Estimated Blood Loss (ml): 5 Pathology: other (Gallbladder) Condition: stable Disposition: PACU Description of Procedure: The patient was placed on the operating table. The patient received a general endotracheal tube anesthesia. The patients abdomen was prepped and draped in the usual sterile fashion. Through an infraumbilical stab incision, the fascia of the anterior abdominal wall was grasped with a pair of Kochers and then the Veress needle was placed in the peritoneal cavity. Position of the Veress needle was confirmed with positive drop test. The abdomen was then insufflated. After adequate insufflation, the 10 mm trocar was placed in the peritoneal cavity. Following this the laparoscope was placed in the peritoneal cavity. The patient was placed in the head-up, right side up position and then a 5 mm trocar was placed in the right lateral and right subcostal position under direct visualization. A 8 mm trocar was placed in the epigastric position. The gallbladder was grasped in the fundus and infundibulum. Traction on the gallbladder was placed in the lateral and the cephalad positions. The triangle of Calot was visualized.. The cystic duct was bluntly dissected until the union of the cystic duct and common bile duct wa s seen. A critical view of safety was achieved. The cystic duct was then divided and sealed with the Harmonic scissors. A PDS Endoloop was then placed throughout the cystic duct stump. The cystic artery divided and sealed with the Harmonic scissors. The gallbladder was then removed from the liver bed using Harmonic scissors. The gallbladder was then extracted through the epigastric port site. Operative field was checked for any bleeding spots and Harmonic scissors was used to coagulate the liver bed. The abdomen was irrigated. The trocars were removed. The skin was closed using interrupted 3-0 Vicryl suture. Dermabond dressing were applied. The patient tolerated the procedure well.
[2023-02-03 13:12] VITALS: TEMP 97
[2023-02-03] MEDS: HYDROmorphone 0.5 MG/0.5 ML SYRINGE IVP PRN ×3 (13:40→14:09)
[2023-02-03] MEDS ORDERED: LABETALOL SYRINGE 5 MG/ML (4 ML SYR) IVP ONE (14:02)
[2023-02-03] MEDS ORDERED: LACTATED RINGERS 1,000 ML IV ONE (14:04)
[2023-02-03] MEDS ORDERED: LABETALOL 5 MG/ML VIAL MDV IVP ONE (14:45)
[2023-02-03 14:58] VITALS: RESP 20
[2023-02-03 15:12] VITALS: PULSE 73
[2023-02-03 15:49] VITALS: BP 120/85
== END 2023-02-03 15:55 | disposition home or self-care (01) ==
LOC: OR 10:35
PROVIDERS: ATTEND Surgery
DX: K80.12 Calculus of gallbladder with acute and chronic cholecystitis without obstruction (principal); I10 Essential (primary) hypertension; E78.5 Hyperlipidemia, unspecified; E07.9 Disorder of thyroid, unspecified; Z98.51 Tubal ligation status; Z98.890 Other specified postprocedural states; Z79.899 Other long term (current) drug therapy; Z80.3 Family history of malignant neoplasm of breast
CPT/HCPCS: 88304; 80053; 84132; 85025; 47562; J2250; J0330; J1100; J2710; J0690; J2405; J3010; J1170 ×2; J2704; J1644; J2001; J1920 ×2; J0665

== ENCOUNTER 2023-04-20 18:51 | Emergency (ER) | payer MEDICARE ==
[2023-04-20] MEDS ORDERED: LIDOCAINE/EPINEPHR/TETRACAINE 5 ML BOTTLE TOPICAL ONE (19:42)
--- NOTE | 2023-04-20 19:44 | ED ---
General Adult HPI - General Chief complaint: Skin/Abscess/Foreign Body Stated complaint: Tick on Chest Time Seen by Provider: 04/20/23 19:41 Source: patient, RN notes reviewed Mode of arrival: ambulatory - History of Present Illness Initial comments: 67-year-old female presents to the emergency department chief complaint of tick bite. This is under her breast bone. States that this has been on her since yesterday possibly but she is not sure. She attempted to take herself at home but the body broke off leaving some of the tick. She denies fever, chills, malaise. - Related Data Home Medications Medication Instructions Recorded Confirmed Fish Oil/Dha/Epa [Fish Oil 1,200 1 each PO DAILY 09/16/17 01/24/23 mg Fish Oil] Multivitamins, Thera [Multivitamin 1 tab PO DAILY 09/16/17 01/24/23 (formulary)] Atorvastatin [Lipitor] 20 mg PO HS 10/26/18 01/24/23 Montelukast [Singulair] 10 mg PO HS PRN 10/26/18 01/24/23 Thyroid,Pork [K[place]leton Thyroid] 90 mg PO DAILY 10/26/18 01/24/23 Timolol 0.5% Ophth Soln [Timoptic 1 drop BOTH EYES BID 10/26/18 01/24/23 0.5% Ophth Soln] Vitamin B Complex/Folic Acid 0.4 mg PO DAILY 10/26/18 01/24/23 [B-Complex Tablet] Tumeric/Karli(Unk) 1 tab PO DAILY 01/24/23 01/24/23 buPROPion HCL [buPROPion HCL SR] 150 mg PO DAILY 01/24/23 01/24/23 hydroCHLOROthiazide 12.5 mg PO DAILY 01/24/23 01/24/23 Cholecalciferol [Vitamin D3 (25 2,000 units PO DAILY 02/03/23 02/03/23 Mcg = 1000 Iu)] Magnesium 250 mg PO DAILY 02/03/23 02/03/23 Previous Rx's Medication Instructions Recorded Ondansetron Odt [Zofran Odt] 4 mg PO Q8HR PRN #15 tab 11/15/22 Acetaminophen Tab [Tylenol] 650 mg PO Q6H #30 tab 02/03/23 Docusate [Colace] 100 mg PO BID #20 capsule 02/03/23 Ibuprofen [Motrin] 600 mg PO Q6HR PRN #40 tab 02/03/23 Ondansetron [Zofran] 4 mg PO Q8HR PRN #10 tab 02/03/23 oxyCODONE HCL [OxyIR] 5 mg PO Q6H PRN 3 Days #10 tab 02/03/23 Allergies Allergy/AdvReac Type Severity Reaction Status Date / Time No Known Allergies Allergy Verified 04/20/23 19:40 Review of Systems ROS Statement: Those systems with pertinent positive or pertinent negative responses have been documented in the HPI. ROS Other: All systems not noted in ROS Statement are negative. Past Medical History Past Medical History: Hyperlipidemia, Hypertension, Thyroid Disorder History of Any Multi-Drug Resistant Organisms: None Reported Past Surgical History: Cholecystectomy, Tubal Ligation Additional Past Surgical History / Comment(s): Colonoscopy; Hemorroidectomy Past Anesthesia/Blood Transfusion Reactions: No Reported Reaction Past Psychological History: No Psychological Hx Reported Smoking Status: Current every day smoker Past Alcohol Use History: None Reported Past Drug Use History: None Reported - Past Family History Mother Family Medical History: Cancer Additional Family Medical History / Comment(s): Breast CA Course Vital Signs 04/20/23 04/20/23 19:37 21:09 Temperature 98.3 F 98.6 F Pulse Rate 71 78 Respiratory 18 16 Rate Blood Pressure 137/88 152/92 O2 Sat by Pulse 96 97 Oximetry Medical Decision Making - Medical Decision Making Was pt. sent in by a medical professional or institution ([facility] Cope, [employer], urgent care, hospital, or intermediate...) When possible be specific @ -No Did you speak to anyone other than the patient for history (EMS, parent, family, police, friend...)? What history was obtained from this source @ -No Did you review nursing and triage notes (agree or disagree)? Why? @ -I reviewed and agree with nursing and triage notes Were old charts reviewed (outside hosp., previous admission, EMS record, old EKG, old radiological studies, urgent care reports/EKG's, intermediate records)? Report findings @ -No old charts were reviewed Differential Diagnosis (chest pain, altered mental status, abdominal pain women, abdominal pain men, vaginal bleeding, weakness, fever, dyspnea, syncope, headache, dizziness, GI bleed, back pain, seizure, CVA, palpatations, mental health, musculoskeletal)? @ -tick bite EKG interpreted by me (3pts min.). @ -none X-rays interpreted by me (1pt min.). @ -None done CT interpreted by me (1pt min.). @ -None done U/S interpreted by me (1pt. min.). @ -None done What testing was considered but not performed or refused? (CT, X-rays, U/S, labs)? Why? @ -None What meds were considered but not given or refused? Why? @ -None Did you discuss the management of the patient with other professionals (professionals i.e. Dr., PA, [employer], lab, RT, psych nurse, social services assistant, tube station attendant, teacher, special loan officer, case work aide)? Give summary @ -No Was smoking cessation discussed for >3mins.? @ -No Was critical care preformed (if so, how long)? @ -No Were there social determinants of health that impacted care today? How? (Homelessness, low income, unemployed, alcoholism, drug addiction, transportation, low edu. Level, literacy, decrease access to med. care, [facility], rehab)? @ -No Was there de-escalation of care discussed even if they declined (Discuss DNR or withdrawal of care, Hospice)? DNR status @ -No What co-morbidities impacted this encounter? (DM, HTN, Smoking, COPD, CAD, Cancer, CVA, ARF, Chemo, Hep., AIDS, mental health diagnosis, sleep apnea, morbid obesity)? @ -None Was patient admitted / discharged? Hospital course, mention meds given and route, prescriptions, significant lab abnormalities, going to OR and other pe rtinent info. @ -Discharged. Patient presented to emergency department with chief complaint of tick bite on her chest. She attempted removal but there were remnants of the tick remaining. This was removed in the ED. Patient was given a dose of doxycycline prophylactically. Patient discharged in stable condition. Case discussed with Dr. Woodard Undiagnosed new problem with uncertain prognosis? @ -No Drug Therapy requiring intensive monitoring for toxicity (Heparin, Nitro, Insulin, Cardizem)? @ -No Were any procedures done? @ -No Diagnosis/symptom? @ -Tick bite Acute, or Chronic, or Acute on Chronic? @ -Acute Uncomplicated (without systemic symptoms) or Complicated (systemic symptoms)? @ -Uncomplicated Side effects of treatment? @ -No Exacerbation, Progression, or Severe Exacerbation? @ -No Poses a threat to life or bodily function? How? (Chest pain, [place], [place], pneumonia, PE, COPD, DKA, ARF, appy, cholecystitis, CVA, Diverticulitis, Homicidal, Suicidal, threat to staff... and all critical care pts) @ -No Disposition Clinical Impression: Tick bite Disposition: HOME SELF-CARE Condition: Stable Instructions (If sedation given, give patient instructions): Tick Bite (ED) Additional Instructions: Please follow up with your primary care provider. Return to the emergency department for new or worsening symptoms. Is patient prescribed a controlled substance at d/c from ED?: No Referrals: Mainor Orellana MD [Primary Care Provider] - 1-2 days
[2023-04-20] MEDS ORDERED: LIDOCAINE 1% INJ 10MG/ML (20 ML MDV) SQ ONE (20:22)
[2023-04-20] MEDS ORDERED: DOXYCYCLINE 100 MG CAP PO STA (20:45)
[2023-04-20] MEDS ORDERED: DIPH,PERTUS(ACELL)TETVAC-LF 0.5 ML VIAL IM ONE (20:45)
[2023-04-20 21:12] VITALS: BP 152/92; PULSE 78; RESP 16; TEMP 98.6
== END 2023-04-20 21:10 | disposition home or self-care (01) ==
LOC: EC 18:51
DX: S21.159A Open bite of unspecified front wall of thorax without penetration into thoracic cavity, initial encounter (principal); Z23 Encounter for immunization; W57.XXXA Bitten or stung by nonvenomous insect and other nonvenomous arthropods, initial encounter
CPT/HCPCS: 90715; 90471; 99283; J2001

== ENCOUNTER → 2023-05-28 | Outpatient (CLI) | payer MEDICARE ==
--- NOTE | 2023-06-01 17:56 | MM ---
Reason for Exam: Screening (asymptomatic). Last screening mammogram was performed 12 month(s) ago. Patient History: Menarche at age 13. First Full-Term at age 20. Postmenopausal. Currently using Progesterone, beginning at age 53 for 14 years. 2015, Benign Excisional Biopsy on the left side. Mother had breast cancer, age 53. Risk Values: Traci 5 year model risk: 3.5%. NCI Lifetime model risk: 10.7%. Prior Study Comparison: 05/10/2021 Left Diagnostic Mammogram, [facility]. 11/12/2021 Left MG 3D diag mammo w/cad LT, [facility]. 05/27/2022 Bilateral MG 3D screening mammo w/cad, [facility]. Tissue Density: The breast tissue is heterogeneously dense. This may lower the sensitivity of mammography. Findings: Analyzed By CAD. Benign vascular and oil cyst calcifications are redemonstrated. Microclip left breast from prior biopsy. There is no suspicious group of microcalcifications or new suspicious mass in either breast. Overall Assessment: Benign, BI-RAD 2 Management: Screening Mammogram of both breasts in 1 year. See note below in regards to patient's increased 5 year Traci score. Patient should continue monthly self-breast exams. A clinical breast exam by your physician is recommended on an annual basis. This exam should not preclude additional follow-up of suspicious palpable abnormalities. Note on Traci scores and lifetime risk: 1. A Traci score greater than 3% is considered moderate risk. If this is the case, consider specialist referral to assess eligibility for a risk reducing agent. 2. If overall lifetime risk for the development of breast cancer is 20% or higher, the patient may qualify for future screening with alternating mammogram and breast MRI. Electronically signed and approved by: Raymon Perez M.D. Radiologist
== END | disposition home or self-care (01) ==
LOC: RADMAMWWP 09:32
PROVIDERS: ATTEND Family Medicine
DX: Z12.31 Encounter for screening mammogram for malignant neoplasm of breast (principal); Z78.0 Asymptomatic menopausal state; Z80.3 Family history of malignant neoplasm of breast
CPT/HCPCS: 77063; 77067

== ENCOUNTER → 2025-01-03 | Outpatient (CLI) | payer MEDICARE ==
--- NOTE | 2025-01-03 10:53 | MM ---
Reason for Exam: Screening (asymptomatic). Last mammogram was performed 1 year(s) and 7 month(s) ago. Patient History: Menarche at age 13. First Full-Term at age 20. Postmenopausal. Currently using Progesterone, beginning at age 53 for 14 years. 2015, Benign Excisional Biopsy on the left side. Mother had breast cancer, age 53. Risk Values: Traci 5 year model risk: 3.6%. NCI Lifetime model risk: 10.2%. Prior Study Comparison: 11/12/2021 Left MG 3D diag mammo w/cad LT, [facility]. 05/27/2022 Bilateral MG 3D screening mammo w/cad, [facility]. 05/28/2023 Bilateral MG 3D screening mammo w/cad, [facility]. Tissue Density: The breasts are heterogeneously dense, which may obscure small masses. Findings: Analyzed By CAD. There is no suspicious group of microcalcifications or new suspicious mass in either breast. Overall Assessment: Benign, BI-RAD 2 Management: Screening Mammogram of both breasts in 1 year. . Patient should continue monthly self-breast exams. A clinical breast exam by your physician is recommended on an annual basis. This exam should not preclude additional follow-up of suspicious palpable abnormalities. Note on Traci scores and lifetime risk: 1. A Trcai score greater than 3% is considered moderate risk. If this is the case, consider specialist referral to assess eligibility for a risk reducing agent. 2. If overall lifetime risk for the development of breast cancer is 20% or higher, the patient may qualify for future screening with alternating mammogram and breast MRI. [facility], , 01/03/2025 10:50 AM. Electronically signed and approved by: Vega Niteo M.D. Radiologis
== END | disposition home or self-care (01) ==
LOC: RADMAMWWP 10:09
PROVIDERS: ATTEND Family Medicine
DX: Z12.31 Encounter for screening mammogram for malignant neoplasm of breast (principal); R92.333 Mammographic heterogeneous density, bilateral breasts; Z78.0 Asymptomatic menopausal state; Z80.3 Family history of malignant neoplasm of breast
CPT/HCPCS: 77063; 77067